=== PATIENT | female | born 1945 | race African-American/Black ===

== ENCOUNTER 2018-04-22 06:44 | Emergency (ER) | payer MEDICARE, MEDICAID ==
[~2018-04-22] VITALS: Ht 167.6 cm; Wt 55.0 kg
[~2018-04-22 06:44] MED LIST: EMTR1TAB8 PO
[2018-04-22] MEDS ORDERED: SODIUM CHLORIDE 0.9% 1,000 ML IV ONE (07:22)
[2018-04-22] MEDS ORDERED: ACETAMINOPHEN 325MG TABLET PO ONE (07:45)
[2018-04-22 08:04] LABS: BASOPHILS % 0.6 % (0.0-2.0); HEMATOCRIT. 48.1 % (36.0-48.0); HEMOGLOBIN. 16.5 g/dL (12.0-16.0); LYMPHOCYTES % 23.1 % (20.0-50.0); MEAN CORPUSCULAR HEMOGLOBIN 30.6 pg (28.0-32.0); MEAN CORPUSCULAR VOLUME 89.5 fL (81.0-99.0); MONOCYTES % 6.3 % (2.0-8.0); PLATELET 215 x1000/uL (130-400); RED BLOOD CELL COUNT 5.38 mill/uL (4.2-5.4); RED CELL DISTRIBUTION WIDTH 13.3 % (11.6-14.6)
[2018-04-22 08:13] LABS: PARTIAL THROMBOPLASTIN TIME 25.4 sec (23.4-31.0); PROTHROMBIN TIME 10.5 sec (9.1-11.1)
[2018-04-22 08:15] LABS: CHLORIDE 105 mEq/L (98-107)
[2018-04-22 08:19] LABS: HCG SCREEN NEGATIVE
[2018-04-22 09:12] LABS: CLARITY URINE CLOUDY (CLEAR); COLOR URINE AMBER (YELLOW); KETONES URINE NEGATIVE (NEGATIVE); LEUKOCYTE ESTERASE URINE 1+ (NEGATIVE); NITRITE URINE NEGATIVE (NEGATIVE); OCCULT BLOOD URINE NEGATIVE (NEGATIVE); PROTEIN URINE NEGATIVE (NEGATIVE); SPECIFIC GRAVITY URINE 1.024 (1.005-1.030)
[2018-04-22 11:20] VITALS: BP 147/82
== END 2018-04-22 11:36 | disposition home or self-care (01) ==
LOC: ER 07:42
DX: M25.551 Pain in right hip (principal); M25.562 Pain in left knee; M25.561 Pain in right knee; M25.571 Pain in right ankle and joints of right foot; R07.89 Other chest pain; M85.871 Other specified disorders of bone density and structure, right ankle and foot; B20 Human immunodeficiency virus [HIV] disease; V43.52XA Car driver injured in collision with other type car in traffic accident, initial encounter; Y93.89 Activity, other specified; Y92.410 Unspecified street and highway as the place of occurrence of the external cause; Z96.641 Presence of right artificial hip joint
CPT/HCPCS: 36415; 71045; 73502; 73560; 73610; 80053; 81003; 83690; 84703; 85025; 85610; 85730; 86850; 86900; 86901; 93005; 99284; J7030

== ENCOUNTER 2023-05-05 12:19 | Emergency (ER) | payer MEDICARE, MEDICAID ==
[~2023-05-05] VITALS: Ht 157.5 cm; Wt 56.0 kg
[2023-05-05 12:32] VITALS: BP 164/93; TEMP 98.4; O2SAT 98
[2023-05-05 12:37] VITALS: PULSE 102; RESP 16
== END 2023-05-05 17:39 | disposition home or self-care (01) ==
LOC: ER 14:01
DX: R04.0 Epistaxis (principal); I10 Essential (primary) hypertension
CPT/HCPCS: 99281